=== PATIENT | male | born 1965 | race Caucasian/White ===

== ENCOUNTER 2016-08-22 22:42 | Emergency (ER) | payer SELFPAY ==
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
[2016-08-22] MEDS ORDERED: ZOFRAN INJ 4 MG VIAL IVP ONE (23:08)
[2016-08-22] MEDS ORDERED: MORPHINE SULFATE INJ 4 MG IVP ONE (23:08)
[2016-08-22 23:09] VITALS: BMI 24.0
[2016-08-22] MEDS ORDERED: MORPHINE SULFATE INJ 4 MG ONE (23:17)
[2016-08-22] MEDS ORDERED: ZOFRAN INJ 4 MG VIAL ONE (23:26)
[2016-08-22 23:31] LABS: BASOPHILS % (AUTO) 0.2 % (0.2-1.0); EOSINOPHILS # (AUTO) 0.5 x10^3/uL (0.0-0.2); EOSINOPHILS % (AUTO) 3.4 % (0.9-2.9); HEMOGLOBIN 13.5 g/dL (13.5-18.0); LYMPHOCYTES # (AUTO) 0.6 X10^3/uL (1.3-2.9); LYMPHOCYTES % (AUTO) 4.1 % (21.0-51.0); MEAN CORPUSCULAR HEMOGLOBIN 30.5 pg (27.0-34.0); MEAN CORPUSCULAR VOLUME 92.4 fL (80.0-100.0); MEAN PLATELET VOLUME 7.8 fL (7.4-11.0); MONOCYTES # (AUTO) 0.8 x10^3/uL (0.3-0.8); MONOCYTES % (AUTO) 5.4 % (0.0-13.0); NEUTROPHILS # (AUTO) 12.7 x10^3/uL (2.2-4.8); NEUTROPHILS % (AUTO) 86.9 % (42.0-75.0); PLATELET COUNT 265 X10^3/uL (150.0-450.0); RED BLOOD COUNT 4.44 X10^6/uL (4.7-6.0); RED CELL DISTRIBUTION WIDTH 12.6 % (11.6-16.5); WHITE BLOOD COUNT 14.7 X10^3/uL (3.6-10.0)
[2016-08-22] MEDS ORDERED: THIAMINE HCL INJ IM ONE (23:40)
[2016-08-22] MEDS ORDERED: NS 1000 ML 1,000 ML IV ONE (23:40)
[2016-08-22] MEDS ORDERED: NS 1000 ML 1,000 ML ONE (23:43)
[2016-08-22] MEDS ORDERED: THIAMINE HCL INJ ONE (23:43)
[2016-08-22 23:49] LABS: ALANINE AMINOTRANSFERASE 41 Units/L (12-78); ALKALINE PHOSPHATASE 160 Units/L (46-116); ASPARTATE AMINO TRANSFERASE 43 Units/L (15-37); BLOOD UREA NITROGEN 22 mg/dL (7-18); CALCIUM 8.6 mg/dL (8.5-10.1); CARBON DIOXIDE 27.8 mmol/L (21-32); CHLORIDE 97 mmol/L (98-107); COR CA(FOR HYPOALB) 9.4 mg/dL (8.5-10.1); COR NA(FOR HYPERGLY) 137 mmol/L (136-145); CREATINE KINASE 100 Units/L (39-308); CREATINE KINASE MB < 1.0 ng/mL (0-4.0); CREATININE 1.62 mg/dL (0.70-1.30); GLUCOSE 199 mg/dL (65-99); SODIUM 135 mmol/L (136-145); TOTAL PROTEIN 7.8 g/dL (6.4-8.2); TROPONIN I < 0.02 ng/mL (0-1.5); eGFR BLACK RACES 58 (>60); eGFR NON BLACK RACES 48 (>60)
--- NOTE | 2016-08-22 23:53 | CT ---
EXAM: CT CHEST WITHOUT CONTRAST INDICATION: Left-sided chest pain COMPARISION: No priors for comparison TECHNIQUE: Spiral CT of the chest was performed without contrast. Thin reconstructions in the axial plane were obtained. FINDINGS: Atelectasis is present in both lung bases. In the anterior aspect of the left upper lobe there is a region of subpleural consolidation and or pleural thickening. There is no evidence of bullous diseas e or pulmonary fibrosis. No pneumothorax or pleural effusion. The heart size is normal. No mediastinal or hilar mass or adenopathy. There is no aortic aneurysm. T he regional skeleton is intact. IMPRESSION: In the anterior aspect of the left upper lobe there is an area of subpleural consolidation which cou ld represent pneumonia. Followup exam is recommended to ensure resolution and exclude a neoplastic l esion. There is atelectasis in both lung bases. Reported By:
[2016-08-23 00:03] LABS: BILIRUBIN,URINE NEGATIVE (NEGATIVE); BLOOD/HEMOGLOBIN,URINE 2+ (NEGATIVE); GLUCOSE, URINE 1+ (NEGATIVE); KETONES,URINE NEGATIVE (NEGATIVE); LEUKOCYTE ESTERASE ,URINE 1+ (NEGATIVE); NITRITES,URINE NEGATIVE (NEGATIVE); PROTEIN,URINE 3+ (NEGATIVE); UROBILINOGEN,URINE 1+ (NORMAL)
[2016-08-23] MEDS ORDERED: ROCEPHIN VIAL 1 GM 1 GM in NS 50 ML IV + SPIKE MINIBAG* 50 ML IV ONE (00:15)
[2016-08-23 00:16] LABS: APPEARANCE,URINE SLIGHTLY HAZY (CLEAR); BACTERIA,URINE 1+ /HPF (NEGATIVE); COLOR,URINE YELLOW (YELLOW); RBC,URINE 0-2 /HPF (NEGATIVE); SQUAMOUS EPITHELIAL CELL,UR RARE /HPF (NEGATIVE)
[2016-08-23] MEDS ORDERED: ROCEPHIN 1 GM IV PREMIX * OUT OF STOCK 50 ML IV ONE (00:17)
[2016-08-23] MEDS ORDERED: SALINE 3% 15 ML NEB TX ONE (00:26)
[2016-08-23] MEDS ORDERED: MAGNESIUM SULFATE 50% INJ ONE (01:15)
[2016-08-23 01:24] VITALS: BP 143/82
== END 2016-08-23 01:41 | disposition left against medical advice (07) ==
LOC: ER 22:42
DX: J18.9 Pneumonia, unspecified organism (principal); N39.0 Urinary tract infection, site not specified; F15.10 Other stimulant abuse, uncomplicated; R07.89 Other chest pain; E83.42 Hypomagnesemia
CPT/HCPCS: 36415; 71250; 80053; 80307; 81001; 82550; 82553; 83735; 84484; 85025; 87040; 87070; 87077; 87086; 87186; 87205; 93005; 93010; 93041; 96365; 96367; 96372; 96374; 96375; 99283; A4222; G0434; J0696; J2270; J2405; J3411; J3475

== ENCOUNTER → 2017-03-31 | Outpatient (CLI) | payer OTHER ==
--- NOTE | 2017-03-31 10:17 | RAD ---
Examination: Left shoulder, five views History: Shoulder pain, no trauma Findings: The acromioclavicular joint is normal. There is mild narrowing of the glenohumeral articula tion with suspect subchondral cystic change in the glenoid. No shoulder fracture or dislocation is no braydon. Impression: Slight degenerative glenohumeral change. No acute process identified. Fracture of the med ial clavicle described on recent CT is not definitely identified on the shoulder views. Reported By:
== END ==
LOC: RAD 09:17
PROVIDERS: ATTEND Specialist
DX: M25.512 Pain in left shoulder (principal)
CPT/HCPCS: 73030

== ENCOUNTER 2017-04-06 18:42 | Emergency (ER) | payer SELFPAY ==
[2017-04-06 18:48] VITALS: BMI 24.4
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
[2017-04-06 19:55] LABS: BASOPHILS # (AUTO) 0.1 X10^3/uL (0.0-0.1); EOSINOPHILS # (AUTO) 0.6 x10^3/uL (0.0-0.2); HEMATOCRIT 39.5 % (42.0-54.0); HEMOGLOBIN 13.2 g/dL (13.5-18.0); LYMPHOCYTES # (AUTO) 2.3 X10^3/uL (1.3-2.9); LYMPHOCYTES % (AUTO) 28.8 % (21.0-51.0); MEAN CORPUSCULAR HEMOGLOBIN 29.5 pg (27.0-34.0); MEAN CORPUSCULAR HGB CONC 33.5 g/dL (33.0-35.0); MEAN CORPUSCULAR VOLUME 88.1 fL (80.0-100.0); MONOCYTES # (AUTO) 0.8 x10^3/uL (0.3-0.8); MONOCYTES % (AUTO) 10.5 % (0.0-13.0); NEUTROPHILS # (AUTO) 4.1 x10^3/uL (2.2-4.8); NEUTROPHILS % (AUTO) 51.7 % (42.0-75.0); PLATELET COUNT 414 X10^3/uL (150.0-450.0); RED BLOOD COUNT 4.48 X10^6/uL (4.7-6.0); RED CELL DISTRIBUTION WIDTH 16.8 % (11.6-16.5)
[2017-04-06 20:03] LABS: SALICYLATE < 2.8 mg/dL (2.8-20)
[2017-04-06 20:05] LABS: ALANINE AMINOTRANSFERASE 40 Units/L (12-78); ALBUMIN 3.8 g/dL (3.4-5.0); ALKALINE PHOSPHATASE 104 Units/L (46-116); ASPARTATE AMINO TRANSFERASE 36 Units/L (15-37); BLOOD UREA NITROGEN 28 mg/dL (7-18); CALCIUM 9.5 mg/dL (8.5-10.1); CARBON DIOXIDE 27.8 mmol/L (21-32); CHLORIDE 100 mmol/L (98-107); CREATININE 1.56 mg/dL (0.70-1.30); SODIUM 139 mmol/L (136-145); TOTAL PROTEIN 8.1 g/dL (6.4-8.2); eGFR BLACK RACES > 60 (>60); eGFR NON BLACK RACES 50 (>60)
[2017-04-06 20:12] LABS: BLOOD ALCOHOL 0 mg/dL (0-19.9)
[2017-04-06 20:28] LABS: BILIRUBIN,URINE NEGATIVE (NEGATIVE); BLOOD/HEMOGLOBIN,URINE 1+ (NEGATIVE); GLUCOSE, URINE NEGATIVE (NEGATIVE); KETONES,URINE NEGATIVE (NEGATIVE); LEUKOCYTE ESTERASE ,URINE NEGATIVE (NEGATIVE); NITRITES,URINE NEGATIVE (NEGATIVE); PROTEIN,URINE 3+ (NEGATIVE); UROBILINOGEN,URINE NORMAL (NORMAL)
[2017-04-06 20:51] LABS: APPEARANCE,URINE SLIGHTLY HAZY (CLEAR); BACTERIA,URINE TRACE /HPF (NEGATIVE); COLOR,URINE YELLOW (YELLOW); MUCUS,URINE FEW /HPF (NEGATIVE); RBC,URINE 0-3 /HPF (NEGATIVE); SQUAMOUS EPITHELIAL CELL,UR FEW /HPF (NEGATIVE)
[2017-04-07 07:17] VITALS: BP 112/87
== END 2017-04-07 10:47 ==
LOC: ER 18:48
DX: R44.1 Visual hallucinations (principal)
CPT/HCPCS: 36415; 80053; 80307; 80320; 81001; 85025; 93005; 93010; 99282; 99285; G0434; G6038; G6039; G6040

== ENCOUNTER → 2017-04-24 | Outpatient (CLI) | payer OTHER ==
[2017-04-07 07:17] VITALS: BP 112/87
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
== END ==
LOC: RAD 11:00
PROVIDERS: ATTEND Specialist
DX: S43.205 Unspecified dislocation of left sternoclavicular joint (principal); X58.XXXS Exposure to other specified factors, sequela
CPT/HCPCS: 73200

== ENCOUNTER → 2017-07-07 | Outpatient (CLI) | payer OTHER ==
--- NOTE | 2017-07-10 09:54 | MRI ---
MRI left shoulder without contrast Indication: Left shoulder pain Technique: Multisequence, multiplanar MR images of the left shoulder were obtained without IV contras t. Comparison: CT 04/24/2017 Findings: No acute fracture or malalignment is identified. Of note, the left sternoclavicular joint w as not included in the field of view. There is a low-grade, partial-thickness (25%) articular sided tear of the anterior-mid supraspinatus tendon at footplate. The infraspinatus, subscapularis and teres minor are normal. There is no edema o r atrophy of the rotator cuff musculature. The AC joint is normal without appreciable arthropathy. The type 2 acromion is unremarkable. There is small fluid within the subdeltoid/subacromial bursa. The glenohumeral joint demonstrates moderate ch ondrosis with mild subchondral edema and cyst formation within the glenoid. No large full-thickness g lenohumeral cartilage defects or appreciable effusion is identified. There is a tear of the anterior superior labrum which extends posteriorly to the biceps anchor, which is intact. The long head biceps tendon is also intact and appropriately positioned within the bicipi puja groove. Impression: Low grade partial-thickness (25%) articular surface tear of the anterior-mid supraspinatus tendon at the footplate. Mild-moderate degenerative arthrosis of the glenohumeral joint with associated degenerative SLAP tear . Small fluid within the subdeltoid/subacromial bursa, suggestive for bursitis. Previously described fractures of the left sternoclavicular joint were not included in the field-of-v iew. Reported By:
== END | disposition home or self-care (01) ==
LOC: RAD 14:08
PROVIDERS: ATTEND Orthopaedic Surgery Sports Medicine
DX: M75.102 Unspecified rotator cuff tear or rupture of left shoulder, not specified as traumatic (principal)
CPT/HCPCS: 73221

== ENCOUNTER 2017-07-30 18:17 | Emergency (ER) | payer SELFPAY ==
[2017-07-30 18:25] VITALS: BMI 26.1
[2017-07-30] MEDS ORDERED: CLEOCIN VIAL 600 MG 900 MG in D5W 50 ML IV 50 ML IV ONE (19:16)
[2017-07-30] MEDS ORDERED: CLEOCIN 300 MG IV PREMIX 300 MG/50 ML BAG IV ONE (19:17)
--- NOTE | 2017-07-30 19:17 | DR.GENAD ---
HPI - PCP Primary Care Physician: yadira - Complaint/Symptoms Chief Complaint Doctors Comments: He hurts his left arm about 5 days ago. It is swollen and red. He states that a friend of a friend who is a nurse came by this morning and lanced it. Chief Complaint:: pt states" i hurt my lt arm last week i let a friend amol it this morning it's been red swollen and hurting for 4 or 5 days" - Nurses notes reviewed Nurses Notes Review: Yes - Source History Provided: Patient - Mode of Arrival Mode of Arrival: Ambulatory - Timing Onset of Chief Complaint: 07/23/17 - Severity Severity: Moderate PMH - PMH Past Medical History: Yes Past Medical History: Anxiety, GERD, Hypertension Past Medical History Comment: Chronic LBP Past Surgical History: No - Family History History of Family Medical Conditions: No - Social History Does patient currently use any type of tobacco product: No Have you used tobacco products in the last 12 months: No Does any household member use tobacco: No Alcohol Use: Occasionally Do you use any recreational Drugs:: No Lives With: Family Lives Where: Home - infectious screening In the last 2 months have you had wt loss of >10#?: NO Have you had fever, night sweats or hemotysis?: No Have you traveled outside the country in the last 6 months?: No Isolation: Standard ROS - Review of Systems Constitutional: No Symptoms Reported Eyes: No Symptoms Reported ENTM: No Symptoms Reported Respiratoy: No Symptoms Reported Cardiovascular: No Symptoms Reported Gastrointestinal/Abdominal: No Symptoms Reported Genitourinary: No Symptoms Reported Neurological: No Symptoms Reported Musculoskeletal: Other (swollen and red lefr arm) Integumentary: Other (as described in muskuloskeletal section.) Hematologic/Lymphatic: No Symptoms Reported Endocrine: No Symptoms Reported Psychiatric: No Symptoms Reported All Other Systems: Reviewed and Negative PE - Vital Signs Vitals: Temperature 100.5 F Pulse Rate 111 Respiratory Rate 18 Blood Pressure [Right Arm] 112/87 Blood Pressure 124/77 O2 Sat by Pulse Oximetry 97 - General Limitations: No Limitations General Appearance: Alert, In No Apparent Distress - Head Head Exam: Normal Inspection - Eyes Eye exam: Normal Appearance - ENT ENT Exam: Normal Exam - Neck Neck Exam: Normal Inspection - Chest Chest Inspection: Normal Inspection - Respiratory Respiratory Exam: Normal Lung Sounds Bilat - Cardiovascular Cardiovascular Exam: Regular Rate, Normal Rhythm - Abdominal Exam Abdominal Exam: Normal Inspection, Normal Bowel Sounds, Soft - Extremities Extremities Exam: Edema, Other (Distal Lt. arm and proximal Lt. forearm swelling with erythema. small serosangous drainage on dressing (presumed from I& D site). ) - Back Back Exam: Normal Inspection - Neurologic Neurological Exam: Alert, Oriented X3, CN II-XII Intact - Psychiatric Psychiatric Exam: Normal Affect, Normal Mood - Skin Skin Exam: Other (see muskuloskeletal) ROR - Labs Reviewed Result Diagrams: 07/30/17 19:24 Laboratory: WBC 20.1 X10^3/uL (3.6-10.0) H 07/30/17 19:24 RBC 4.29 X10^6/uL (4.7-6.0) L 07/30/17 19:24 Hgb 12.8 g/dL (13.5-18.0) L 07/30/17 19:24 Hct 38.4 % (42.0-54.0) L 07/30/17 19:24 MCV 89.5 fL (80.0-100.0) 07/30/17 19:24 MCH 29.9 pg (27.0-34.0) 07/30/17 19:24 MCHC 33.4 g/dL (33.0-35.0) 07/30/17 19:24 RDW 13.9 % (11.6-16.5) 07/30/17 19:24 Plt Count 450 X10^3/uL (150.0-450.0) 07/30/17 19:24 MPV 7.6 fL (7.4-11.0) 07/30/17 19:24 Neut % 78.3 % (42.0-75.0) H 07/30/17 19:24 Lymph % 8.8 % (21.0-51.0) L 07/30/17 19:24 [place] % 11.9 % (0.0-13.0) 07/30/17 19:24 Eos % 0.4 % (0.9-2.9) L 07/30/17 19:24 Baso % 0.6 % (0.2-1.0) 07/30/17 19:24 Neut # 15.7 x10^3/uL (2.2-4.8) H 07/30/17 19:24 Lymph # 1.8 X10^3/uL (1.3-2.9) 07/30/17 19:24 [place] # 2.4 x10^3/uL (0.3-0.8) H 07/30/17 19:24 Eos # 0.1 x10^3/uL (0.0-0.2) 07/30/17 19:24 Baso # 0.1 X10^3/uL (0.0-0.1) 07/30/17 19:24 Absolute Nucleated RBC 0.0 /100WBC 07/30/17 19:24 - Diagnosis Discharge Problem: Cellulitis of left upper extremity - Discharge Plan Disposition: HOME, SELF-CARE Condition: Stable - Follow ups/Referrals Follow ups/Referrals: NFD,None [Primary Care Provider] - 3 days - Instructions
[2017-07-30] MEDS ORDERED: CLEOCIN VIAL 600 MG ONE (19:18)
[2017-07-30 19:43] LABS: BASOPHILS # (AUTO) 0.1 X10^3/uL (0.0-0.1); BASOPHILS % (AUTO) 0.6 % (0.2-1.0); EOSINOPHILS # (AUTO) 0.1 x10^3/uL (0.0-0.2); EOSINOPHILS % (AUTO) 0.4 % (0.9-2.9); HEMATOCRIT 38.4 % (42.0-54.0); HEMOGLOBIN 12.8 g/dL (13.5-18.0); LYMPHOCYTES # (AUTO) 1.8 X10^3/uL (1.3-2.9); LYMPHOCYTES % (AUTO) 8.8 % (21.0-51.0); MEAN CORPUSCULAR HEMOGLOBIN 29.9 pg (27.0-34.0); MEAN CORPUSCULAR HGB CONC 33.4 g/dL (33.0-35.0); MEAN CORPUSCULAR VOLUME 89.5 fL (80.0-100.0); MEAN PLATELET VOLUME 7.6 fL (7.4-11.0); MONOCYTES # (AUTO) 2.4 x10^3/uL (0.3-0.8); MONOCYTES % (AUTO) 11.9 % (0.0-13.0); NEUTROPHILS # (AUTO) 15.7 x10^3/uL (2.2-4.8); NEUTROPHILS % (AUTO) 78.3 % (42.0-75.0); PLATELET COUNT 450 X10^3/uL (150.0-450.0); RED BLOOD COUNT 4.29 X10^6/uL (4.7-6.0); RED CELL DISTRIBUTION WIDTH 13.9 % (11.6-16.5); WHITE BLOOD COUNT 20.1 X10^3/uL (3.6-10.0)
[2017-07-30 21:38] VITALS: BP 131/71
== END 2017-07-30 21:35 | disposition home or self-care (01) ==
LOC: ER 18:28
DX: L03.114 Cellulitis of left upper limb (principal)
CPT/HCPCS: 36415; 85025; 96365; 96374; 99282; 99283; A4222; S0077